=== PATIENT | male | born 1975 | race Caucasian/White ===

== ENCOUNTER 2016-12-23 03:13 | Emergency (ER) | payer OTHER ==
[~2016-12-23] VITALS: Ht 185.4 cm; Wt 86.2 kg
[~2016-12-23 03:13] MED LIST: ALBUTEROL200 PUFFS/ IH; BACTRIM DS 8001 TAB PO; BACTROBAN2% TP; CEPHALEXIN500 MG PO; GABAPENTIN300 M1; GABAPENTIN300 MG PO; IBUPROFEN800 MG PO; KEFLEX 500MG.500 MG PO; LISINOPRIL 20MG20 MG PO; LORTAB 500 MG-11 TAB PO; MEDROL 4MG. DOSE4 MG PO; METHADONE 10MG10 MG PO; NAPROSYN 500MG500 MG PO; NOMEDS; ROBAXIN-750750 MG PO; SEPTRA DS 800 M1 TAB PO; TEMAZEPAM15 MG PO; TESSALON PERLE100 MG PO; VIBRAMYCIN 100100 MG PO; ZITHROMAX Z PA250 MG PO; ZOMIG ZMT PO
--- OUTSIDE RECORDS SUMMARY | 2016-12-23 03:17 | External Medical Summary Rpt ---
Author Author , Organization [employer] Address Unknown Phone Unavailable Care Team Providers Care Turbine Engineer Name Role Phone TEJA PARMAR, Unavailable Unavailable TEJA PARMAR JAMES P, Unavailable Unavailable MAHESH LEDESMA MICHAEL S, Unavailable Unavailable JESUS DESHPANDE LESLIE W, Unavailable Unavailable MAHIN GARCIA [facility] Unavailable Unavailable INC, [facility] Shena Perkins MD, Unavailable Unavailable Shena Deshpande MD, Unavailable Unavailable Trinidad COLEMAN MD, Unavailable Unavailable THALIA COLEMAN MD [id number], Unavailable Unavailable [id number] FARHANA STORY, Unavailable Unavailable FARHANA STORY MARCEL, SIMO, Unavailable Unavailable ALLA Abreu Continuity of Care Document - 03-08-2009 through 2016 Problems Code Diagnosis DOS Provider Status 373.13 373.13 04-24-2013 Vitaliy ABSCESS OF [facility] 682.4 682.4 04-24-2013 Vitaliy CELLULITIS [facility] 305.00 305.00 04-08-2013 Vitaliy ALCOHOL [facility] 305.1 04-08-2013 Vitaliy TOBACCO USE [facility] 924.8 924.8 04-08-2013 Vitaliy MULTIPLE [facility] CONTUSIONS [facility] E825.7 E825.7 MV 04-08-2013 Vitaliy N-TRAFF [facility]-PEDEST [facility] E849.8 E849.8 04-08-2013 Vitaliy ACCIDENT IN [facility] 493.90 493.90 03-30-2013 [facility] 847.0 847.0 03-30-2013 Vitaliy SPRAIN OF [facility] 922.31 922.31 BACK 03-30-2013 Vitaliy CONTUSION [facility] E849.0 E849.0 03-30-2013 Vitaliy ACCIDENT IN [facility] E880.9 E880.9 FALL 03-30-2013 Vitaliy ON [facility] STAIR/STEP [place]EC 83771 DEGEN 07-03-2009 [facility] [place] LUMBAR/LUMB PAIN OSACRAL [facility]ESSION[facility] RAL DISC 68486 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 PROFESSIONA [facility]ERV[facility] REGION 7840 HEADACHE 07-03-2009 [facility] [place] [facility]IN [facility] V5869 LONG-TERM 07-03-2009 [facility] [place] (CURRENT[place] PAIN USE OF PROFESSIONA OTHER LS LLC MEDICATIONS 490 BRONCHITIS 06-18-2009 [facility] SPE[facility]IED CENTER ACUTE OR CHRONIC 92821 ASTHMA, 06-18-2009 [facility] , CENTER UNSPECIFIED STATUS 16908 ASTHMA 06-14-2009 [facility] U[facility]PECIFIED [facility]CARE WITH CENTER EXACERBATIO N 71295 UNSPECIFIED 05-11-2009 [facility] REG[facility] AND THIGH 37800 PAIN IN 05-08-2009 [facility] [place] JOINT PAIN P[facility]VIC PROFESSIONA REGION AND LS LLC THIGH 4660 ACUTE 04-29-2009 [facility] 19371 WHEEZING 04-29-2009 [facility] Allergies, Adverse Reactions, Alerts Type Allergy to substance Adverse Reaction to Substance Substance Reaction Severity NO KNOWN ALLERGIES Unknown Unknown Medications Na ND Rx Da Fi Fi Am Da Di Ph RX Ph St me C No te ll ll ou ys ag ar # ys at rm s nt no ma ic us Or Da si cy ia de te s n re d GE 17 09 0 No NT 47 -0 AK 80 2- Lo 28 20 ng 0. 43 13 er 3 5 % Ac EY ti E ve OI NT ME NT GONZALES 51 09 0 No LF 07 -0 AM 90 2- Lo ET 12 20 ng HO 82 13 er XA 0 ZO Ac LE ti -T ve MP DS TA BL ET KE 00 08 0 No TO 40 -0 RO 93 8- Lo LA 79 20 ng C 50 13 er 30 1 Ac MG ti /M ve L AL 53 01 01 00 30 30 RI 81 RU Ac 74 -1 -2 .0 TE 71 TL ti 60 4- 8- 00 98 ED ve 11 20 20 AI GE 90 10 10 D 1 PH CEDILLO AR RO M LD #3 H 93 8 GA 53 01 01 00 90 30 RI 81 RU Ac BA 74 -1 -2 .0 TE 71 TL ti PE 60 4- 8- 00 96 ED ve NT 10 20 20 AI GE IN 20 10 10 D 1 PH CEDILLO 30 AR RO 0 M LD MG #3 H 93 CA 8 PS UL E TE 67 01 01 00 14 14 RI 81 RU Ac MA 87 -1 -2 .0 TE 71 TL ti ZE 70 4- 8- 00 97 ED ve PA 14 20 20 AI GE M 70 10 10 D 30 1 PH CEDILLO AR RO MG M LD #3 H CA 93 PS 8 UL E AZ 59 10 11 00 6. 5 RI 80 GR Ac IT 76 -2 -0 00 TE 55 AV ti HR 23 3- 5- 0 24 ES ve OM 06 20 20 AI YC 00 09 09 D LE IN 1 PH SL AR IE 25 M W 0 #3 MG 93 8 TA BL ET 59 10 11 00 8. 25 RI 80 GR Ac 31 -2 -0 50 TE 60 AV ti 00 7- 5- 0 63 ES ve 57 20 20 AI 92 09 09 D LE 0 PH SL AR IE M W #3 93 8 ME 00 10 11 00 21 6 RI 80 GR Ac TH 60 -2 -0 .0 TE 60 AV ti YL 34 7- 5- 00 62 ES ve VA 59 20 20 AI ED 31 09 09 D LE NI 5 PH SL SO AR IE LO M W NE #3 4 93 8 MG DO SE PK MU 63 10 11 00 30 15 RI 80 GR Ac CI 82 -2 -0 .0 TE 60 AV ti NE 40 7- 5- 00 64 ES ve X 00 20 20 AI ER 86 09 09 D LE 1 PH SL 60 AR IE 0 M W MG #3 93 TA 8 BL ET 49 10 11 00 75 30 RI 80 GR Ac 50 -2 -0 .0 TE 55 AV ti 20 3- 5- 00 23 ES ve 69 20 20 AI 72 09 09 D LE 4 PH SL AR IE M W #3 93 8 AD 00 10 11 00 60 30 RI 80 GR Ac VA 17 -2 -0 .0 TE 60 AV ti IR 30 7- 5- 00 71 ES ve 69 20 20 AI 25 60 09 09 D LE 0- 0 PH SL 50 AR IE M W DI #3 SK 93 US 8 ME 00 09 10 00 21 6 RI 80 GA Ac TH 60 -1 -0 .0 TE 06 IN ti YL 34 9- 8- 00 58 EY ve VA 59 20 20 AI ED 31 09 09 D SC NI 5 PH CH SO AR AE LO M L NE #3 S 4 93 8 MG DO SE PK 59 09 09 00 8. 25 RI 79 FL Ac 31 -0 -2 50 TE 87 AN ti 00 7- 4- 0 77 AG ve 57 20 20 AI AN 92 09 09 D 0 PH JA AR ME M S #3 P 93 8 AZ 59 09 09 00 6. 5 RI 79 FL Ac IT 76 -0 -2 00 TE 87 AN ti HR 23 7- 4- 0 76 AG ve OM 06 20 20 AI AN YC 00 09 09 D IN 1 PH JA AR ME 25 M S 0 #3 P MG 93 8 TA BL ET Vital Signs 04-24-2013 00:20 Name Value Interpretat Reference Comment ion Range Body 98.3 [degF] Temperature BP 105 mm[Hg] Diastolic BP Systolic 153 mm[Hg] Heart 84 /min Rate/Pulse O2% 98 % Respiratory 16 /min Rate 04-24-2013 00:19 Name Value Interpretat Reference Comment ion Range BP 105 mm[Hg] Diastolic BP Systolic 153 mm[Hg] Heart 84 /min Rate/Pulse O2% 98 % Respiratory 16 /min Rate 04-08-2013 16:59 Name Value Interpretat Reference Comment ion Range BP 94 mm[Hg] Diastolic BP Systolic 140 mm[Hg] Heart 93 /min Rate/Pulse O2% 97 % Respiratory 20 /min Rate 04-08-2013 16:17 Name Value Interpretat Reference Comment ion Range BP 88 mm[Hg] Diastolic BP Systolic 171 mm[Hg] Heart 98 /min Rate/Pulse O2% 99 % Respiratory 20 /min Rate 03-30-2013 21:00 Name Value Interpretat Reference Comment ion Range Body 98.6 [degF] Temperature BP 87 mm[Hg] Diastolic BP Systolic 157 mm[Hg] Heart 71 /min Rate/Pulse O2% 99 % Respiratory 20 /min Rate 03-30-2013 19:52 Name Value Interpretat Reference Comment ion Range BP 109 mm[Hg] Diastolic BP Systolic 158 mm[Hg] Heart 94 /min Rate/Pulse O2% 97 % Respiratory 20 /min Rate Results Labs Lab Lab Date Result Refere Interp Status Commen Order Detail nces retati t Range on COMPREHENSIVE METABOLIC PANEL (04-08-2013 16:22) Glucose 112 74-106 complet 013 mg/dL ed Bld-mCn 16:22 c BUN 08-17-2 9 mg/dL 7-18 complet Bld-mCn 013 ed c 16:22 Creat 1.0 0.8-1.3 complet SerPl-m 013 mg/dL ed Cnc 16:22 ESTIMAT 132 50-200 complet ED 013 ML/MIN ed CREATIN 16:22 INE CLEARAN CE GFR 85 Greater complet (ESTIMA 013 ML/MIN than ed OLAF) 16:22 60 Sodium 146 136-145 complet SerPl-s 013 mmoL/L ed Cnc 16:22 Potassi 3.5 3.5-5.1 complet um 013 mmoL/L ed SerPl-s 16:22 Cnc Chlorid 109 98-107 complet e 013 mmoL/L ed SerPl-s 16:22 Cnc CO2 26 21.0-32 complet SerPl-s 013 mmoL/L .0 ed Cnc 16:22 Calcium 8.6 8.5-10. complet 013 mg/dL 1 ed SerPl-m 16:22 Cnc Prot 7.8 6.4-8.2 complet SerPl-m 013 gm/dL ed Cnc 16:22 Albumin 4.1 3.4-5.0 complet 013 gm/dL ed SerPl-m 16:22 Cnc Globuli 3.7 1.3-3.2 complet n 013 gm/dL ed Ser-mCn 16:22 c Albumin 1.1 UNK 1.1-1.8 complet /Glob 013 ed SerPl-m 16:22 Rto Bilirub 1.2 0.2-1.0 complet 013 mg/dL ed SerPl-m 16:22 Cnc AST 16 U/L 15-37 complet SerPl-c 013 ed Cnc 16:22 ALT 41 U/L 30-65 complet SerPl-c 013 ed Cnc 16:22 ALP 99 U/L 50-136 complet SerPl-c 013 ed Cnc 16:22 Ethanol Bld-mCnc (04-08-2013 16:22) Ethanol 08-17-2 175 0-99 complet 013 mg/dL ed Bld-mCn 16:22 c CBC with AUTO DIFF (04-08-2013 16:22) WBC # 08-17-2 7.2 4.8-10. complet Bld 013 K/MM3 8 ed Auto 16:22 RBC # 08-17-2 4.64 4.6-6.2 complet Bld 013 M/mm3 ed Auto 16:22 Hgb 08-17-2 13.7 14.1-18 complet Bld-mCn 013 g/dL .0 ed c 16:22 Hct Fr 17-2 40.3 % 42.0-52 complet Bld 013 .0 ed 16:22 MCV RBC 08-17-2 86.7 fl 82.2-97 complet 013 .8 ed 16:22 MCH RBC -17-2 29.5 pg 27-31.2 complet Qn 013 ed Auto 16:22 MEAN 08-17-2 34.0 31.8-35 complet CORPUSC 013 g/dl .4 ed ULAR 16:22 HGB CONC RDW RBC -17-2 13.6 % 11.5-17 complet Auto 013 .5 ed 16:22 Platele 08-17-2 248 142-424 complet t Bld 013 K/mm3 ed Ql 16:22 Manual MEAN 17-2 7.5 fl 7.4-10. complet PLATELE 013 4 ed T 16:22 VOLUME Granulo -17-2 67.3 % 37.0-80 complet cytes 013 .0 ed Fr Bld 16:22 Auto LYMPH % 08-17-2 23.1 % 10-50 complet 013 ed 16:22 Monocyt 08-17-2 5.5 % 1.7-9.3 complet es Fr 013 ed Bld 16:22 Auto Eosinop 08-17-2 3.7 % 0.1-12. complet hil Fr 013 0 ed Bld 16:22 Auto Basophi 08-17-2 0.4 % 0.1-2.0 complet ls Fr 013 ed Bld 16:22 Auto Granulo 08-17-2 4.9 1.3-8.0 complet cytes # 013 K/mm3 ed Bld 16:22 Auto Lymphoc 08-17-2 1.7 0.7-4.5 complet ytes Fr 013 K/mm3 ed Bld 16:22 Auto Monocyt 08-17-2 0.4 0.1-1.0 complet es # 013 K/mm3 ed Bld 16:22 Auto Eosinop 08-17-2 0.3 0.0-0.4 complet hil # 013 K/mm3 ed Bld 16:22 Auto Basophi 08-17-2 0.0 0-0.2 complet ls # 013 K/MM3 ed Bld 16:22 Auto URINALYSIS/COMPLETE (04-08-2013 15:40) URINE 08-17-2 YELLOW YELLOW complet COLOR 013 ed 15:40 URINE 08-17-2 CLEAR CLEAR complet APPEARA 013 ed NCE 15:40 URINE 08-17-2 NEGATIV NEG complet GLUCOSE 013 E ed - 15:40 DIPSTIC K URINE 08-17-2 NEGATIV NEG complet BILIRUB 013 E ed IN - 15:40 DIPSTIC K URINE 08-17-2 NEGATIV NEG complet KETONE 013 E mg/dL ed 15:40 URINE 08-17-2 Less 1.005-1 complet SPECIFI 013 than or .030 ed C 15:40 equal GRAVITY to 1.005 URINE 08-17-2 NEGATIV NEG complet BLOOD 013 E ed 15:40 URINE 08-17-2 5.5 UNK 5.0-8.5 complet PH 013 ed 15:40 URINE 08-17-2 NEGATIV NEG complet PROTEIN 013 E mg/dL ed - 15:40 DIPSTIC K URINE 08-17-2 0.2 NEG complet UROBILI 013 E.U./dL ed NOGEN - 15:40 DIPSTIC K URINE 08-17-2 NEGATIV NEG complet NITRATE 013 E ed - 15:40 DIPSTIC K URINE 08-17-2 NEGATIV NEG complet LEUK 013 E ed ESTERAS 15:40 E URINE 08-17-2 OCC O complet WBC 013 wbc/hpf ed 15:40 URINE 08-17-2 OCC OCC complet SQUAMOU 013 #/hpf ed S CELLS 15:40 URINE 08-17-2 TRACE O complet BACTERI 013 ed A 15:40 Procedures Procedure DOS Code Location Performer Comment PRESSURIZ 34159 [facility], ED/NONPRE 9 [facility] W SSURIZED E CENTER INHALATIO N TREATMENT NONINVASI 15689 [facility], [place] 9 [facility] W EAR/PULSE E CENTER OXIMETRY SINGLE DETER RADEX HIP 34471 SLICK PARMAR, 9 MEDICAL TEJA VIGILA IMAGING L ASSOCIATE COMPLETE S MINIMUM 2 VIEWS RADIOLOGI 85673 [facility] B[facility]KS C EXAM 9 [facility] CHEST 2 INC INC VIEWS FRONTAL&L ATERAL Encounters Encounter Start End Date Code Location Performer Type Date Emergency BAIRON Deshpande MD (ER) 3 23:40 3 00:21 [facility] Emergency BAIRON COLEMAN (ER) 3 15:42 3 17:10 [facility] Emergency BAIRON Perkins MD (ER) 3 18:35 3 21:[address] [facility] OFFICE 01844 KAJAL CURRY 9 9 [place] PAIN [place] H T VISIT PROFESSIO 15 [facility] MINUTES OFFICE 08134 [facility], OUTPATIEN 9 9 [facility] ALL[facility] T VISIT E CENTER 15 MINUTES OFFICE 77691 [facility], OUTPATIEN 9 9 [facility] MA[facility]IN W T NEW 30 E CENTER MINUTES EMERGENCY 42069 [facility] 9 9 [facility] DEPARTMEN INC T VISIT LOW/MODER SEVERITY HOSPITAL [facility] - 9 9 [facility] OUTPATIEN INC T EMERGENCY 05176 TEZ DESHPANDE, 9 9 EMERGENCY JESUS S DEPARTMEN SERVICES T VISIT MODERATE ASSOCIATE SEVERITY S OFFICE 18083 KAJAL CURRY 9 9 [place] T VISIT PROFESSIO [facility] MINUTES HOSPITAL [facility] - 9 9 [facility] OUTPATIEN INC T EMERGENCY 92095 TEZ LEDESMA, 9 9 EMERGENCY MAHESH P DEPARTMEN SERVICES T VISIT HIGH/URGE ASSOCIATE NT S SEVERITY EMERGENCY 10443Daxa BURKS 9 9 [facility] DEPARTMEN INC T VISIT LOW/MODER SEVERITY HOSPITAL [facility] - 9 9 [facility] OUTPATIEN INC T OFFICE 23358 KAJAL CURRY 9 9 [place] PAIN [place] Angelo T VISIT PROFESSIO 15 [facility] MINUTES
--- OUTSIDE RECORDS SUMMARY | 2016-12-23 03:17 | External Medical Summary Rpt ---
Author Author , Organization [employer] Address Unknown Phone Unavailable Care Team Providers Care Locks Tender Name Role Phone TEJA PARMAR, Unavailable Unavailable [...] Status 373.13 373.13 04-24-2013 Vitaliy ABSCESS OF [facility] 682.4 682.4 04-24-2013 Vitaliy CELLULITIS [facility] 305.00 305.00 04-08-2013 Vitaliy ALCOHOL [facility] 305.1 305.1 04-08-2013 Vitaliy TOBACCO USE [facility] 924.8 924.8 04-08-2013 Vitaliy MULTIPLE [facility] CONTUSIONS [facility] E825.7 E825.7 MV 04-08-2013 Vitaliy N-TRAFF [facility]-PEDEST [facility] E849.8 E849.8 04-08-2013 Vitaliy ACCIDENT IN [facility] 493.90 493.90 03-30-2013 [facility] 847.0 847.0 03-30-2013 Vitaliy SPRAIN OF [facility] 922.31 922.31 BACK 03-30-2013 Vitaliy CONTUSION [facility] E849.0 E849.0 03-30-2013 Vitaliy ACCIDENT IN [facility] E880.9 E880.9 FALL 03-30-2013 Vitaliy ON [facility] STAIR/STEP Hospital NEC 14673 DEGEN 07-03-2009 [facility] [place] LUMBAR/LUMB [place]IN OSACRAL PROFESSIONA [facility] RAL DISC 60017 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 PROFESSIONA [facility] REGION 7840 HEADACHE 07-03-2009 [facility] [place] [facility] [facility] V5869 LONG-TERM 07-03-2009 [facility] [place] (CURRENT[place] PAIN USE OF PROFESSIONA OTHER [facility] MEDICATIONS 490 BRONCHITIS 06-18-2009 [facility] NOT [facility] SPECIFIED CENTER ACUTE OR CHRONIC 53243 ASTHMA, 06-18-2009 [facility] U[facility]PEC[facility]ARE , CENTER UNSPECIFIED STATUS 54085 ASTHMA 06-14-2009 [facility] UNSPECIFIED [facility]ARE WITH CENTER EXACERBATIO N 46839 UNSPECIFIED 05-11-2009 [facility] REG[facility] AND THIGH 98654 PAIN IN 05-08-2009 [place] [place] JOINT PAIN [facility] THIGH 4660 ACUTE 04-29-2009 [facility] 55675 WHEEZING 04-29-2009 [facility] Allergies, Adverse Reactions, Alerts [...] 34 7- 5- 00 62 ES ve MO 59 20 20 AI ED 31 09 [...] 34 9- 8- 00 58 EY ve MO 59 20 20 AI ED 31 09 09 D OK NI 5 PH CH SO AR AE [...] Procedure DOS Code Location Performer Comment PRESSURIZ 22335 [facility], ED/NONPRE 9 [facility] W SSURIZED E CENTER INHALATIO N TREATMENT NONINVASI 99349 [facility], [place] 9 [facility] W EAR/PULSE E CENTER OXIMETRY SINGLE DETER RADEX HIP 96455 SLICK PARMAR, 9 MEDICAL TEJA VIGILA IMAGING L ASSOCIATE COMPLETE S MINIMUM 2 VIEWS RADIOLOGI 04914 VIATLIY BURKS C EXAM 9 [facility] CHEST 2 INC INC VIEWS FRONTAL&L ATERAL Encounters Encounter Start End Date Code Location Performer Type Date Emergency BAIRON Deshpande MD (ER) 3 23:40 3 00:21 [facility] Emergency BAIRON COLEMAN (ER) 3 15:42 3 17:10 [facility] Emergency BAIRON Perkins MD (ER) 3 18:35 3 21:02 [facility] OFFICE 38353 KAJAL CURRY 9 9 [place] T VISIT PROFESSIO [facility] MINUTES OFFICE 63703 [facility], OUTPATIEN 9 9 [facility] ALLA T VISIT E CENTER 15 MINUTES OFFICE 18754 [facility], OUTPATIEN 9 9 [facility] MAHIN W T NEW 30 E CENTER MINUTES EMERGENCY 76499 [facility] 9 9 [facility] DEPARTMEN INC T VISIT LOW/MODER SEVERITY HOSPITAL [facility] - 9 9 [facility] OUTPATIEN INC T EMERGENCY 53464 TEZ DESHPANDE, 9 9 EMERGENCY JESUS S DEPARTMEN SERVICES T VISIT MODERATE ASSOCIATE SEVERITY S OFFICE 36585 KAJAL CURRY 9 9 [place] T VISIT PROFESSIO [facility] MINUTES HOSPITAL VITALIY - 9 9 [facility] OUTPATIEN INC T EMERGENCY 10876 TEZ LEDESMA, 9 9 EMERGENCY MAHESH P DEPARTMEN SERVICES T VISIT HIGH/URGE ASSOCIATE NT S SEVERITY EMERGENCY 45001Daxa BURKS 9 9 [facility] DEPARTMEN INC T VISIT LOW/MODER SEVERITY HOSPITAL [facility] - 9 9 [facility] OUTPATIEN INC T OFFICE 30163 KAJAL CURRY 9 9 [place] Angelo T VISIT PROFESSIO 15 [facility] MINUTES
--- OUTSIDE RECORDS SUMMARY | 2016-12-23 03:18 | External Medical Summary Rpt ---
Author Author , Organization [employer] Address Unknown Phone Unavailable Care Team Providers Care Platform Loader Name Role Phone TEJA PARMAR, Unavailable Unavailable GHULAMTEJA PANDYA MAHESH LEDESMA, Unavailable Unavailable MAHESH LEDESMA MICHAEL S, Unavailable Unavailable JESUS DESHPANDE LESLIE W, Unavailable Unavailable MAHIN GARCIA [facility] Un[facility] Un[facility] INC, [id number], Unavailable Unavailable [id number] FARHANA STORY, Unavailable Unavailable FARHANA STORY MARCEL, SIMO, Unavailable Unavailable ALLA Arbeu Continuity of Care Document - 03-08-2009 through 2016 Problems Code Diagnosis DOS Provider Status 38201 DEGEN 07-03-2009 [place] [place] LUMBAR/LUMB PAIN OSACRAL [facility]ESSION[facility] RAL DISC 10573 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 PROFESSIONA [facility] REGION 7840 HEADACHE 07-03-2009 [facility] [place] [facility] [facility] V5869 LONG-TERM 07-03-2009 [facility] [place] (CURRENT[place] PAIN USE OF PROFESSIONA OTHER [facility] MEDICATIONS 490 BRONCHITIS 06-18-2009 [facility] SPE[facility]IFIED CENTER ACUTE OR CHRONIC 74935 ASTHMA, 06-18-2009 [facility] , CENTER UNSPECIFIED STATUS 26308 ASTHMA 06-14-2009 [facility] U[facility]PECIFIED [facility] WITH CENTER EXACERBATIO N 51672 UNSPECIFIED 05-11-2009 [facility] REGION AND THIGH 80360 PAIN IN 05-08-2009 [place] [place] JOINT PAIN PEL[facility]IC PROFESSIONA REGION AND [facility] THIGH 4660 ACUTE 04-29-2009 [facility]IS [facility] 39424 WHEEZING 04-29-2009 [facility] Medications Na ND Rx Da Fi Fi Am Da Di Ph RX Ph St me C No te ll ll ou ys ag ar # ys at rm s nt no ma ic us Or Da si cy ia de te s n re d 53 01 01 00 30 30 RI [...] 34 7- 5- 00 62 ES ve WV 59 20 20 AI ED 31 09 [...] MG #3 93 TA 8 BL ET AD 00 10 11 00 60 30 RI 80 GR Ac VA 17 -2 -0 .0 TE 60 AV ti IR 30 7- 5- 00 71 ES ve 69 20 20 AI 25 60 09 09 D LE 0- 0 PH SL 50 AR IE M W DI #3 SK 93 US 8 49 10 11 00 75 30 RI 80 GR Ac 50 -2 -0 .0 TE 55 AV ti 20 3- 5- 00 23 ES ve 69 20 20 AI 72 09 09 D LE 4 PH SL AR IE M W #3 93 8 ME 00 09 10 00 21 6 RI 80 GA Ac TH 60 -1 -0 .0 TE 06 IN ti YL 34 9- 8- 00 58 EY ve WV 59 20 20 AI ED 31 09 09 D IN NI 5 PH CH SO AR AE [...] P MG 93 8 TA BL ET Procedures Procedure DOS Code Location Performer Comment PRESSURIZ 35822 [facility], ED/NONPRE 9 [facility] [place] W SSURIZED E CENTER INHALATIO N TREATMENT NONINVASI 29388 [facility] GARCIA, VE 9 [facility]IN W EAR/PULSE E CENTER OXIMETRY SINGLE DETER RADEX HIP 65487 [place] GHULAM 9 MEDICAL TEJA UNILATERA IMAGING L ASSOCIATE COMPLETE S MINIMUM 2 VIEWS RADIOLOGI 82350 [place] Belkis PARMAR EXAM 9 MEDICAL TEJA CHEST 2 IMAGING VIEWS ASSOCIATE FRONTAL&L S ATERAL Encounters Encounter Start End Date Code Location Performer Type Date OFFICE 49749 [facility] [place] 9 [place] T VISIT PROFESSIO [facility] MINUTES OFFICE 66796 [facility] OUTPATIEN 9 9 [facility] ALLA T VISIT E CENTER 15 MINUTES OFFICE 39550 [facility], [facility] 9 [facility] MAHIN W T NEW 30 E CENTER MINUTES HOSPITAL VITALIY - 9 9 [facility] OUTPATIEN INC T EMERGENCY 41528 TEZ DESHPANDE, 9 9 EMERGENCY [facility] SERVICES T VISIT MODERATE ASSOCIATE SEVERITY S EMERGENCY 15731 [facility] 9 9 [facility] DEPARTMEN INC T VISIT LOW/MODER SEVERITY HOSPITAL VITAL[facility]Y - 9 9 [facility] OUTPATIEN INC T OFFICE 35577 KAJAL CURRY 9 9 [place] T VISIT PROFESSIO 15 [facility] MINUTES EMERGENCY 61494 TEZ LEDESMA, 9 9 EMERGENCY [facility] SERVICES T VISIT HIGH/URGE ASSOCIATE NT S SEVERITY HOSPITAL VITALIY - 9 9 [facility] OUTPATIEN INC T EMERGENCY 57442 [facility] 9 9 [facility] DEPARTMEN INC T VISIT LOW/MODER SEVERITY OFFICE 88507 KAJAL CURRY 9 9 [place] T VISIT PROFESSIO 15 [facility] MINUTES
--- OUTSIDE RECORDS SUMMARY | 2016-12-23 03:18 | External Medical Summary Rpt ---
Demographics Preferred Language Botswanan Marital Status Unknown Mu-Ism Affiliation Unknown Race Unknown Ethnic Group Unknown Author Author , Organization [employer] Address Unknown Phone Unavailable Purpose Continuity of Care Document - through 2016 Immunization No patient found.
--- OUTSIDE RECORDS SUMMARY | 2016-12-23 03:18 | External Medical Summary Rpt ---
Author Author , Organization [employer] Address Unknown Phone Unavailable Care Team Providers Care Meat Counter Worker Name Role Phone TEJA PARMAR, Unavailable Unavailable [...] 2016 Problems Code Diagnosis DOS Provider Status 38404 DEGEN 07-03-2009 [place] [place] LUM[place]/LUMB PA[place] OSACRAL PROFESSIONA [facility] RAL DISC 35405 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 PROFESSIONA [facility] REGION 7840 HEADACHE 07-03-2009 [facility] [place] [facility] [facility] V5869 LONG-TERM 07-03-2009 [place] [place] (CURRENT[place] PAIN USE OF PROFESSIONA OTHER [facility] MEDICATIONS 490 BRONCHITIS 06-18-2009 [facility]IED CENTER ACUTE OR CHRONIC 68208 ASTHMA, 06-18-2009 [facility] , CENTER UNSPECIFIED STATUS 41996 ASTHMA 06-14-2009 [facility] WITH CENTER EXACERBATIO N 92893 UNSPECIFIED 05-11-2009 [facility] REGION AND THIGH 62763 PAIN IN 05-08-2009 [place] JOINT PAIN [facility]IC PROFESSIONA REG[facility] AND [facility] THIGH 4660 ACUTE 04-29-2009 [facility]IS [facility] 29013 WHEEZING 04-29-2009 [facility] Medications Na ND Rx [...] GE 90 10 10 D 1 PH CDEILLO AR RO M LD #3 H 93 [...] 34 7- 5- 00 62 ES ve NJ 59 20 20 AI ED 31 09 [...] 34 9- 8- 00 58 EY ve NJ 59 20 20 AI ED 31 09 09 D MD NI 5 PH CH SO AR AE [...] Procedure DOS Code Location Performer Comment PRESSURIZ 35021 [facility], ED/NONPRE 9 [facility] [place] W SSURIZED E CENTER INHALATIO N TREATMENT NONINVASI 25159 [facility]OHA[facility] GARCIA, VE 9 [facility]HIN W EAR/PULSE E CENTER OXIMETRY SINGLE DETER RADEX HIP 95251 [place] 9 MEDICAL TEJA UNILATERA IMAGING L ASSOCIATE COMPLETE S MINIMUM 2 VIEWS RADIOLOGI 70695 [place] PARMAR EXAM 9 MEDICAL TEJA CHEST 2 IMAGING VIEWS ASSOCIATE FRONTAL&L S ATERAL Encounters Encounter Start End Date Code Location Performer Type Date OFFICE 53433 [facility] [place] H T VISIT PROFESSIO [facility] MINUTES OFFICE 31378 [facility] ROMERO OUTPATIEN 9 9 [facility] ALLA T VISIT E CENTER 15 MINUTES OFFICE [id number] [facility], [facility]IN W T NEW 30 E CENTER MINUTES HOSPITAL VITALIY - 9 9 [facility] OUT[facility] INC T EMERGENCY 36164 TEZ [place], [address] [facility] SERVICES T VISIT MODERATE ASSOCIATE SEVERITY S EMERGENCY 28478 VITALIY 9 9 [facility] DEPARTMEN [facility] T VISIT LOW/MODER SEVERITY HOSPITAL VITALIY - 9 9 [facility] T OFFICE 11012 KAJAL CURRY 9 9 [place] PAIN [place] H T VISIT PROFESSIO 15 [facility] MINUTES EMERGENCY 32338 TEZ LEDESMA, 9 9 EMERGENCY [facility] SERVICES T VISIT HIGH/URGE ASSOCIATE NT S SEVERITY HOSPITAL VITALIY - 9 9 [facility] OUTPATIEN INC T EMERGENCY 24128 VITALIY 9 9 [facility] DEPART[facility] INC T VISIT LOW/MODER SEVERITY OFFICE 01689 KAJAL CURRY 9 9 [place] PAIN [place] H T VISIT PROFESSIO 15 [facility] [facility] MINUTES
--- OUTSIDE RECORDS SUMMARY | 2016-12-23 03:18 | External Medical Summary Rpt ---
Author Author [employer], [employer] Organization [employer] Address Unknown Phone Unavailable
--- OUTSIDE RECORDS SUMMARY | 2016-12-23 03:18 | External Medical Summary Rpt ---
Demographics Preferred Language [place]an Marital Status Unknown Jainism Affiliation Unknown Race Unknown Ethnic Group Unknown Author Author , Organization [employer] Address Unknown Phone Unavailable Purpose Continuity of Care Document - through 2016 Immunization No patient found.
[2016-12-23] MEDS ORDERED: METOPROLOL SUCC25 M2 PO (03:20)
[2016-12-23] MEDS ORDERED: GABAPENTIN300 M1 PO (03:21)
[2016-12-23] MEDS ORDERED: DIAZEPAM5 M1 PO (03:21)
[2016-12-23] MEDS ORDERED: DULOXETINE HYDR30 MG PO (03:22)
[2016-12-23] MEDS ORDERED: TRAMADOL 50MG T50 MG PO (03:22)
[2016-12-23] MEDS ORDERED: LOSARTAN POTASS50 MG PO (03:22)
--- OUTSIDE RECORDS SUMMARY | 2016-12-23 03:24 | External Medical Summary Rpt ---
Author Author , Organization [employer] Address Unknown Phone Unavailable Care Team Providers Care Etl Analyst Developer Name Role Phone TEJA PARMAR, Unavailable Unavailable [...] Status 373.13 373.13 04-24-2013 Vitaliy ABSCESS OF [facility] 682.4 682.4 04-24-2013 Vitaliy CELLULITIS [facility] 305.00 305.00 04-08-2013 Vitaliy ALCOHOL [facility] 305.1 305.1 04-08-2013 Vitaliy TOBACCO USE [facility] 924.8 924.8 04-08-2013 Vitaliy MULTIPLE [facility] CONTUSIONS [facility] E825.7 E825.7 MV 04-08-2013 Vitaliy N-TRAFF [facility] E849.8 E849.8 04-08-2013 Vitaliy ACCIDENT IN [facility] 493.90 493.90 03-30-2013 [facility] 847.0 847.0 03-30-2013 Vitaliy SPRAIN OF [facility] 922.31 922.31 BACK 03-30-2013 Vitaliy CONTUSION [facility] E849.0 E849.0 03-30-2013 Vitaliy ACCIDENT IN [facility] E880.9 E880.9 FALL 03-30-2013 Vitaliy ON [facility] STAIR/ST[place] 94920 DEGEN 07-03-2009 [facility] [place] LUMBAR/LUMB PAIN OSACRAL PROFESSIONA [facility] RAL DISC 69892 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 PROFESSIONA CERVICAL LS LLC REGION 7840 HEADACHE 07-03-2009 [place] PAIN PROFESSIONA [facility] V5869 LONG-TERM 07-03-2009 [place] [place] (CURRENT[place] PAIN USE OF PROFESSIONA OTHER LS LLC MEDICATIONS 490 BRONCHITIS 06-18-2009 [facility]IED CENTER ACUTE OR CHRONIC 07173 ASTHMA, 06-18-2009 [facility] , CENTER UNSPECIFIED STATUS 47055 ASTHMA 06-14-2009 [facility] UNSPECIFIED [facility]CARE WITH CENTER EXACERBATIO N 75727 UNSPECIFIED 05-11-2009 [facility] REG[facility] AND THIGH 23542 PAIN IN 05-08-2009 [place] JOINT PAIN PELVIC PROFESSIONA REGION AND LS [facility] THIGH 4660 ACUTE 04-29-2009 [facility] 83176 WHEEZING 04-29-2009 [facility] Allergies, Adverse Reactions, Alerts [...] 34 7- 5- 00 62 ES ve SC 59 20 20 AI ED 31 09 [...] 34 9- 8- 00 58 EY ve SC 59 20 20 AI ED 31 09 09 D ME NI 5 PH CH SO AR AE [...] 013 mg/dL ed Bld-mCn 16:22 c BUN 9 mg/dL 7-18 complet Bld-mCn 013 ed [...] Bld 013 .0 ed 16:22 MCV RBC 0817-2 86.7 fl 82.2-97 complet 013 .8 ed 16:22 MCH RBC 17-2 29.5 pg 27-31.2 complet Qn 013 ed Auto 16:22 MEAN -17-2 34.0 31.8-35 complet CORPUSC 013 g/dl .4 ed ULAR 16:22 HGB CONC RDW RBC -17-2 13.6 % 11.5-17 complet Auto 013 .5 ed 16:22 Platele -17-2 248 142-424 complet t Bld 013 K/mm3 ed Ql 16:22 Manual MEAN 17-2 7.5 fl 7.4-10. complet PLATELE 013 4 ed T 16:22 VOLUME Granulo -17-2 67.3 % 37.0-80 complet cytes 013 .0 ed Fr Bld 16:22 Auto LYMPH % 08-17-2 23.1 % 10-50 complet 013 ed 16:22 Monocyt -17-2 5.5 % 1.7-9.3 complet es Fr 013 [...] Procedure DOS Code Location Performer Comment PRESSURIZ 62352 [facility], ED/NONPRE 9 [facility] W SSURIZED E CENTER INHALATIO N TREATMENT NONINVASI 04096 [facility] [place], [place] 9 [facility] W EAR/PULSE E CENTER OXIMETRY SINGLE DETER RADEX HIP 10099 SLICK GHULAM, 9 MEDICAL TEJA UNILATERA IMAGING L ASSOCIATE COMPLETE S MINIMUM 2 VIEWS RADIOLOGI 94637 SLICK GHULAM, C EXAM 9 MEDICAL TEJA CHEST 2 IMAGING VIEWS ASSOCIATE FRONTAL&L S ATERAL Encounters Encounter Start End Date Code Location Performer Type Date Emergency BAIRON Deshpande MD (ER) 3 23:40 3 00:21 [facility] Emergency BAIRON COLEMAN (ER) 3 15:42 3 17:10 [facility] Emergency BAIRON Perkins MD (ER) 3 18:35 3 21:02 [facility] OFFICE 57045 KAJAL CURRY 9 9 [place] T VISIT PROFESSIO [facility] MINUTES OFFICE 94582 [facility], OUTPATIEN 9 9 [facility] T VISIT E CENTER 15 MINUTES OFFICE 77867 [facility]RA[facility], OUTPATIEN 9 9 [facility] W T NEW 30 E CENTER MINUTES EMERGENCY 99664 TEZ DESHPANDE, 9 9 EMERGENCY [facility] DEPARTMEN SERVICES T VISIT MODERATE ASSOCIATE SEVERITY S EMERGENCY 17881 [facility] 9 9 [facility]PARTMEN INC T VISIT LOW/MODER SEVERITY HOSPITAL [facility] - 9 9 [facility] OUTPATIEN INC T OFFICE 26049 KAJAL CURRY 9 9 [place] T VISIT PROFESS[facility] MINUTES HOSPITAL VITALIY - 9 9 [facility] OUTPATIEN INC T EMERGENCY 49929 V[facility]Y 9 9 [facility] DEPARTMEN INC T VISIT LOW/MODER SEVERITY HOSPITAL VITALIY - 9 9 [facility] OUTPATIEN INC T EMERGENCY 98525 TEZ LEDESMA, 9 9 EMERGENCY MAHESH Kirk [facility] SERVICES T VISIT HIGH/URGE ASSOCIATE NT S SEVERITY OFFICE 09857 KAJAL CURRY 9 9 [place] Angelo T VISIT PROFESSIO 15 [facility] MINUTES
--- OUTSIDE RECORDS SUMMARY | 2016-12-23 03:24 | External Medical Summary Rpt ---
Author Author , Organization [employer] Address Unknown Phone Unavailable Care Team Providers Care Non Destructive Evaluation Manager Name Role Phone TEJA PARMAR, Unavailable Unavailable [...] Status 373.13 373.13 04-24-[address] [facility] 682.4 682.4 04-24-2013 Vitaliy CELLULITIS [facility] 305.00 305.00 04-08-2013 Vitaliy ALCOHOL [facility] 305.1 305.1 04-08-2013 Vitaliy TOBACCO USE [facility] 924.8 924.8 04-08-2013 Vitaliy MULTIPLE [facility] CONTUSIONS [facility] E825.7 E825.7 MV 04-08-2013 Vitaliy N-TRAFF [facility] E849.8 E849.8 04-08-2013 Vitaliy ACCIDENT IN [facility] 493.90 493.90 03-30-2013 [facility] 847.0 847.0 03-30-2013 Vitaliy SPRAIN OF [facility] 922.31 922.31 BACK 03-30-2013 Vitaliy CONTUSION [facility] E849.0 E849.0 03-30-2013 Vitaliy ACCIDENT IN [facility] E880.9 E880.9 FALL 03-30-2013 Vitaliy ON [facility] STAIR/STEP [place] NEC 99347 DEGEN 07-03-2009 [place] LUMBAR/LUMB [place]IN OSACRAL PROFESSIONA INTERVER[facility]B [facility] RAL DISC 20198 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 PROFESSIONA C[facility]ICAL [facility] REGION 7840 HEADACHE 07-03-2009 [place] [place] [facility] [facility] V5869 LONG-TERM 07-03-2009 [facility] [place] (CURRENT[place] PAIN USE OF PROFESSIONA OTHER [facility] MEDICATIONS 490 BRONCHITIS 06-18-2009 [facility] SPE[facility]IFIED CENTER ACUTE OR CHRONIC 26460 ASTHMA, 06-18-2009 [facility] , CENTER UNSPECIFIED STATUS 78639 ASTHMA 06-14-2009 [facility] UNSPEC[facility] WITH CENTER EXACERBATIO N 09273 UNSPECIFIED 05-11-2009 [facility] REG[facility] AND THIGH 23194 PAIN IN 05-08-2009 [place] JOINT PAIN [facility] PROF[facility]A REG[facility] AND [facility] THIGH 4660 ACUTE 04-29-2009 [facility]ONCHITIS [facility] 81136 WHEEZING 04-29-2009 [facility] Allergies, Adverse Reactions, Alerts [...] 34 7- 5- 00 62 ES ve AL 59 20 20 AI ED 31 09 [...] 34 9- 8- 00 58 EY ve AL 59 20 20 AI ED 31 09 [...] Procedure DOS Code Location Performer Comment PRESSURIZ 73151 [facility], ED/NONPRE 9 [facility] W SSURIZED E CENTER INHALATIO N TREATMENT NONINVASI 01338 [facility], VE 9 [facility] W EAR/PULSE E CENTER OXIMETRY SINGLE DETER RADEX HIP 47731 SLICK GHULAM, 9 MEDICAL TEJA UNILATERA IMAGING L ASSOCIATE COMPLETE S MINIMUM 2 VIEWS RADIOLOGI 15421 SLICK GHULAM, C EXAM 9 MEDICAL TEJA CHEST 2 IMAGING VIEWS ASSOCIATE FRONTAL&L S ATERAL Encounters Encounter Start End Date Code Location Performer Type Date Emergency BAIRON Deshpande MD (ER) 3 23:40 3 00:21 [facility] Emergency BAIRON COLEMAN (ER) 3 15:42 3 17:10 [facility] Emergency BAIRON Perkins MD (ER) 3 18:35 3 21:02 [facility] OFFICE 88816 KAJAL CURRY 9 9 [place] T VISIT PROFESSIO [facility] MINUTES OFFICE 43371 [facility] ROMERO, OUTPATIEN 9 9 [facility] T VISIT E CENTER 15 MINUTES OFFICE 73011 [facility]RA[facility], OUTPATIEN 9 9 [facility] W T NEW 30 E CENTER MINUTES EMERGENCY 99928 TEZ DESHPANDE, 9 9 EMERGENCY [facility] DEPARTMEN SERVICES T VISIT MODERATE ASSOCIATE SEVERITY S EMERGENCY 11402 VITALIY 9 9 [facility] DEPARTMEN INC T VISIT LOW/MODER SEVERITY HOSPITAL VITALIY - 9 9 [facility] OUTPATIEN INC T OFFICE 49889 KAJAL CURRY 9 9 [place] T VISIT PROFESSIO [facility] MINUTES HOSPITAL VITALIY - 9 9 [facility] OUTPATIEN INC T EMERGENCY 61887 VITALIY 9 9 [facility] DEPARTMEN INC T VISIT LOW/MODER SEVERITY HOSPITAL VITALIY - 9 9 [facility] OUTPATIEN INC T EMERGENCY 48963 TEZ LEDESMA, 9 9 EMERGENCY MAHESH Kirk [facility] SERVICES T VISIT HIGH/URGE ASSOCIATE NT S SEVERITY OFFICE 55067 KAJAL CURRY 9 9 [place] Angelo T VISIT PROFESSIO 15 [facility] MINUTES
--- OUTSIDE RECORDS SUMMARY | 2016-12-23 03:25 | External Medical Summary Rpt ---
Demographics Preferred Language Moroccan Marital Status Unknown Samaritan Affiliation Unknown Race Unknown Ethnic Group Unknown Author Author , Organization [employer] Address Unknown Phone Unavailable Purpose Continuity of Care Document - through 2016 Immunization No patient found.
--- OUTSIDE RECORDS SUMMARY | 2016-12-23 03:25 | External Medical Summary Rpt ---
Author Author , Organization [employer] Address Unknown Phone Unavailable Care Team Providers Care Director Online Marketing Name Role Phone TEJA PARMAR, Unavailable Unavailable [...] 2016 Problems Code Diagnosis DOS Provider Status 53741 DEGEN 07-03-2009 [facility] [place] LUMBAR/LUMB [place]IN OSACRAL PROFESSIONA [facility] RAL DISC 84833 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 PROFESSIONA [facility]ICAL [facility] REGION 7840 HEADACHE 07-03-2009 [facility] [place] [facility] [facility] V5869 LONG-TERM 07-03-2009 [facility] [place] ([place] PAIN USE OF PROFESSIONA OTHER [facility] MEDICATIONS 490 BRONCHITIS 06-18-2009 [facility] NOT [facility] SPE[facility]IFIED CENTER ACUTE OR CHRONIC 92509 ASTHMA, 06-18-2009 [facility] , CENTER UNSPECIFIED STATUS 46678 ASTHMA 06-14-2009 [facility] U[facility]PEC[facility]IED [facility] WITH CENTER EXACERBATIO N 27635 UNSPECIFIED 05-11-2009 [place] [facility] REG[facility] AND THIGH 67766 PAIN IN 05-08-2009 [place] [place] JOINT PAIN [facility] PROF[facility]A [facility] THIGH 4660 ACUTE 04-29-2009 [facility]IS [facility] 75890 WHEEZING 04-29-2009 [facility] Medications Na ND Rx [...] 34 7- 5- 00 62 ES ve NH 59 20 20 AI ED 31 09 [...] 34 9- 8- 00 58 EY ve NH 59 20 20 AI ED 31 09 09 D RI NI 5 PH CH SO AR AE [...] Procedure DOS Code Location Performer Comment PRESSURIZ 18130 [facility], ED/NONPRE 9 [facility] [place] W SSURIZED E CENTER INHALATIO N TREATMENT NONINVASI 64340 ZOHA[facility] GARCIA, VE 9 [facility] W EAR/PULSE E CENTER OXIMETRY SINGLE DETER RADEX HIP 82062 [place] Tj PARMAR MEDICAL TEJA UNILATERA IMAGING L ASSOCIATE COMPLETE S MINIMUM 2 VIEWS RADIOLOGI 91465 [place] Belkis PARMAR EXAM 9 MEDICAL TEJA CHEST 2 IMAGING VIEWS ASSOCIATE FRONTAL&L S ATERAL Encounters Encounter Start End Date Code Location Performer Type Date OFFICE 85808 [place] KAJAL STORY 9 9 [place] T VISIT PROF[facility] MINUTES OFFICE 72624 [facility] ROMERO OUTPATIEN 9 9 [facility] T VISIT E CENTER 15 MINUTES OFFICE 23000 ZOHAIB GRAVES OUTPATIEN 9 9 [facility] MAHIN W T NEW 30 E CENTER MINUTES EMERGENCY 85670 VITALIY 9 9 [facility] DEPARTMEN INC T VISIT LOW/MODER SEVERITY HOSPITAL VITALIY - 9 9 [facility] OUTPATIEN INC T EMERGENCY 58196 TEZ DESHPANDE, 9 9 EMERGENCY JESUS S DEPARTMEN SERVICES T VISIT MODERATE ASSOCIATE SEVERITY S OFFICE 27700 KAJAL CURRY 9 9 [place] T VISIT PROFESSIO [facility] MINUTES HOSPITAL VITALIY - 9 9 [facility] OUTPATIEN INC T HOSPITAL VITALIY - 9 9 [facility] OUTPATIEN INC T EMERGENCY 24209 [place] 9 9 [facility] DEPARTMEN INC T VISIT LOW/MODER SEVERITY EMERGENCY 55519 TEZ LEDESMA, 9 9 EMERGENCY MAHESH P DEPARTMEN SERVICES T VISIT HIGH/URGE ASSOCIATE NT S SEVERITY OFFICE 59806 KAJAL CURRY 9 9 [place] T VISIT PROFESSIO 15 [facility] MINUTES
--- OUTSIDE RECORDS SUMMARY | 2016-12-23 03:25 | External Medical Summary Rpt ---
Demographics Preferred Language Cuban Marital Status Unknown Jehovah'S Witness Affiliation Unknown Race Unknown Ethnic Group Unknown Author Author , Organization [employer] Address Unknown Phone Unavailable Purpose Continuity of Care Document - through 2016 Immunization No patient found.
--- OUTSIDE RECORDS SUMMARY | 2016-12-23 03:25 | External Medical Summary Rpt ---
Author Author , Organization [employer] Address Unknown Phone Unavailable Care Team Providers Care Creel Selector Name Role Phone TEJA PARMAR, Unavailable Unavailable [...] 2016 Problems Code Diagnosis DOS Provider Status 56629 DEGEN 07-03-2009 [place] [place] LUMBAR/LUMB PAIN OSACRAL PROFESSIONA INTER[facility] RAL DISC 26412 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 PROFESSIONA CERVICAL [facility] REGION 7840 HEADACHE 07-03-2009 [facility] [place] [facility] [facility] V5869 LONG-TERM 07-03-2009 [facility] [place] PAIN USE OF PROFESSIONA OTHER [facility] MEDICATIONS 490 BRONCHITIS 06-18-2009 [facility] NOT [facility] SPE[facility]IFIED CENTER ACUTE OR CHRONIC 65983 ASTHMA, 06-18-2009 [facility] , CENTER UNSPECIFIED STATUS 29677 ASTHMA 06-14-2009 [facility] UNSPECIFIED [facility] WITH CENTER EXACERBATIO N 47449 UNSPECIFIED 05-11-2009 [place] [facility] REGION AND THIGH 41393 PAIN IN 05-08-2009 [place] JOINT [place]IN PELVIC PROFESSIONA REGION AND [facility] THIGH 4660 ACUTE 04-29-2009 [facility]IS [facility] 08347 WHEEZING 04-29-2009 [facility] Medications Na ND Rx [...] 34 7- 5- 00 62 ES ve ME 59 20 20 AI ED 31 09 [...] 34 9- 8- 00 58 EY ve ME 59 20 20 AI ED 31 09 09 D MA NI 5 PH CH SO AR AE [...] Procedure DOS Code Location Performer Comment PRESSURIZ 23644 [facility] GARCIA, ED/NONPRE 9 [facility] [place] W SSURIZED E CENTER INHALATIO N TREATMENT NONINVASI 82547 ZOHAIB GARCIA, VE 9 [facility] W EAR/PULSE E CENTER OXIMETRY SINGLE DETER RADEX HIP 59445 [place] Tj PARMAR MEDICAL TEJA UNILATERA IMAGING L ASSOCIATE COMPLETE S MINIMUM 2 VIEWS RADIOLOGI 02288 [place] Belkis PARMAR EXAM 9 MEDICAL TEJA CHEST 2 IMAGING VIEWS ASSOCIATE FRONTAL&L S ATERAL Encounters Encounter Start End Date Code Location Performer Type Date OFFICE 33993 [place] KAJAL STORY 9 9 [place] T VISIT PROFESSIO [facility] MINUTES OFFICE 97889 [facility] ROMERO OUTPATIEN 9 9 [facility] ALLA T VISIT E CENTER 15 MINUTES OFFICE 81010 ZOHAIB GRAVES OUTPATIEN 9 9 [facility] W T NEW 30 E CENTER MINUTES EMERGENCY 71687 VITALIY 9 9 [facility] DEPARTMEN INC T VISIT LOW/MODER SEVERITY HOSPITAL VITALIY - 9 9 [facility] OUTPATIEN INC T EMERGENCY 91020 TEZ DESHPANDE, 9 9 EMERGENCY JESUS S DEPARTMEN SERVICES T VISIT MODERATE ASSOCIATE SEVERITY S OFFICE 42790 KAJAL CURRY 9 9 [place] T VISIT PROFESSIO 15 [facility] MINUTES HOSPITAL VITALIY - 9 9 [facility] OUTPATIEN INC T HOSPITAL VITALIY - 9 9 [facility] OUTPATIEN INC T EMERGENCY 10110 [place] 9 9 [facility] DEPARTMEN INC T VISIT LOW/MODER SEVERITY EMERGENCY 70098 TEZ LEDESMA, 9 9 EMERGENCY MAHESH P DEPARTMEN SERVICES T VISIT HIGH/URGE ASSOCIATE NT S SEVERITY OFFICE 86265 KAJAL CURRY 9 9 [place] T VISIT PROFESSIO 15 [facility] MINUTES
[2016-12-23 03:37] LABS: HEMOGLOBIN 14.9 g/dL (14.1-18.0); LYMPH # 2.4 K/mm3 (0.7-4.5); LYMPH % 39.1 % (10-50)
--- NOTE | 2016-12-23 03:50 | Emergency Room Report ---
History of Present Illness Time Seen by MD Castrejon Presenting Problem in Triage Pt arrived:Ambulance Stretcher Presenting Problem:C/O BACK PAIN, REPORTS NECK SURGERY IN 2003. SMELL OF ETOH, PATIENT CUSSING RELATED TO SOMEONE STEALING PHONE. ACCOMPANIED WITH SARAH THAPA. PATIENT REQUESTING CT AND MRI.STATES INSURANCE WILL NOT PAY FOR SCAN. Onset of symptoms date/time:11/23/16/ or onset unknown for:MEDICAL HX UNKNOWN Treatment Prior to Arrival: DIRECTOR REHABILITATION PROGRAM Provided by: Sepsis Risk Assessment: Temp: 99.3 B/P: 175/77 MAP: Pulse: 100 Resp: 18 Recent fever? N Clinical Suspician of Infection? N Mental Status: 1 - Regular (Normal Baseline) Sepsis Risk:Low Sepsis Risk Have you (or family members/close friends) recently traveled outside the [place]? N If Yes, where/when: Have you had exposure to infectious disease within the past month? N TB? Other? Specify: Source patient, RN notes reviewed, EMS, old records Exam Limitations no limitations Comment pt with lumbar pain which is daily and interferes with adl and inc pain tonight with dec ambulation - no cauda equina sx Cardiac Chest Pain Chest pain indicative of cardiac No Timing/Duration this evening Severity moderate ALLERGIES Coded Allergies: No Known Allergies (12/23/16) Home Medications Reported Medications Metoprolol Succinate 25 MG PO BID #60 Diazepam 5 MG PO DAILY #30 Gabapentin 300 MG PO BID #180 Tramadol Hcl (Tramadol 50MG) 50 MG PO BID #60 Losartan Potassium (Losartan 50MG) 50 MG PO DAILY #30 DULOXETINE HCL (Duloxetine Hydrochloride) 30 MG PO DAILY #30 History Medical History General CAD? No Angina: No CO: No Hypertension? No Hyperlipidemia? No CHF? No DVT? No PE? No COPD? No Asthma? Yes Anemia? No GERD? No Gastric ulcers? No GI Bleed? No Hernia? No Thyroid Problems? No Hypothyroidism? No CVA? No Seizures? No Diabetes? No Renal Insuffiency? No End Stage Renal Disease? No UTI? No Stones? No BPH? No GB Disease: Yes Nephritic Syndrome? No Asplenia? No Hepatitis? No Sickle Cell Disease? No Arthritis? No Migraines? No Cataracts? No Glaucoma? No MRSA? No HIV? No TB? No Anxiety? No Depression? No Cancer? No More? No Immunization Hx DT/Tetanus 3/12/15 Flu UNKNOWN Pneumonia UNKNOWN Surgical Hx Previous Surgery?Y CERVICAL FUSION [place] RECTAL ABCESS Social History Smoking Hx Smoker: Never Smoker Tobacco: Yes Type Snuff Packs/day < 1 Pack Alcohol Alcohol: No Drugs none Review of Systems All Other Systems Reviewed and Negative Constitutional denies fever Eyes denies drainage ENT denies: ear pain, epistaxis, throat pain. Respiratory denies cough, denies shortness of breath, denies wheezing Cardiovascular denies chest pain, denies palpitations, denies syncope Gastrointestinal denies abdominal pain, denies diarrhea, denies vomiting Genitourinary denies: dysuria, frequency, hesitancy, hematuria. Musculoskeletal see HPI, back pain, denies joint pain, denies joint swelling, denies neck pain Skin denies rash Psychiatric/Neurological denies headache, denies seizure Physical Exam Vital Signs Vital Signs Date Time Temp Pulse Resp B/P Pulse O2 O2 Flow FiO2 Ox Delivery Rate 12/23 0437 96 18 143/85 97 12/23 0355 104 18 176/102 97 12/23 0314 99.3 100 18 175/77 97 - WBC >12,000 or <4,000 or 10% bands? 2 or more SIRS Criteria Met? B/P:143/85 MAP: Creatinine >2.0? UA output<0.5ml/kg/hr for 2 hrs? Platelet count >100,000? Lactate >2.0mmol/1? INR >1.2 or PTT > than 60 sec? Evidence of Organ Dysfunction? Provider documented clinical suspician of infection? N Sepsis Criteria Count: 1 Sepsis Risk: Low Sepsis Risk General Appearance no apparent distress Eye Exam - bilateral eye PERRL, bilateral eye EOMI Ear, Nose, Throat normal ENT inspection Neck supple Respiratory Status No: respiratory distress. Cardiovascular regular rate/rhythm Peripheral Pulses Pulses normal Yes Gastrointestinal soft Back no CVA tenderness, no vertebral tenderness, bowel/bladder continent, strt leg raising(R)-ABNL, decreased range of motion Extremities no calf tenderness Strength 4 Upper Ext (L), 4 Upper Ext (R), 4 Lower Ext (L), 4 Lower Ext (R) Neurologic alert, repairer art objects II-XII nml as tested, no motor/sensory deficits Reflexes Reflexes normal No Mental status normal mood/affect Skin no rash cons.w/shingles Medical Decision Making LABS/Meds/Orders Pt receiving controlled substance in ED? No Results/Orders Laboratory Tests 12/23/16 0405: Opiates Screen NEGATIVE, Urine Methadone Screen NEGATIVE, Barbiturates NEGATIVE, Phencyclidine Screen NEGATIVE, Amphetamines Screen NEGATIVE, Benzodiazepines Screen POSITIVE H, Cocaine Screen NEGATIVE, Marijuana (THC) Screen NEGATIVE, Urine Color YELLOW, Urine Appearance CLEAR, Urine pH 5.5, Ur Specific [place] <= 1.005, Urine Protein NEGATIVE, Urine Ketones NEGATIVE, Urine Blood NEGATIVE, Urine Nitrate NEGATIVE, Urine Bilirubin NEGATIVE, Urine Urobilinogen 0.2, Ur Leukocyte Esterase NEGATIVE, Urine WBC OCC, Urine Bacteria 1+, Hyaline Casts OCC , Fine Granular Casts OCC, Urine Mucus 1+, Urine Glucose NEGATIVE 12/23/16 0317: Sodium 143, Potassium 3.6, Chloride 108 H, Carbon Dioxide 24, BUN 3 L, Creatinine 1.0, Estimated Creat Clear 121, Estimated GFR (MDRD) 83, Glucose 138 H, Calcium 8.0 L, Total Bilirubin 0.4, AST 41 H, ALT 46, Alkaline Phosphatase 80, Total Protein 7.7, Albumin 3.5, Globulin 4.2 H, Albumin/Globulin Ratio 0.8 L, WBC 6.1, RBC 4.93, Hgb 14.9, Hct 44.6, MCV 90.5, RDW 13.3, Plt Count 264, MPV 6.6 L, Gran % 51.9, Gran # 3.1, Lymphocytes % 39.1, Monocytes % 7.1, Eosinophils % 1.1, Basophils % 0.7, Lymphocytes # 2.4, Monocytes # 0.4, Eosinophils # 0.1, Basophils # 0.0, PUBS MCHC 33.5, MCH 30.3, Alcohols 243 H Current Medication Orders Sig/Lester Start time Last Medication Dose Route Stop Time Status Admin Sodium Chloride 10 ML PRN PRN 12/23 033 AC IV 12/25 323 Orders Procedure Date/time Status DIET-NOTHING BY MOUTH 12/[address] SCAN REQ 12/238 Complete IV SALINE LOCK 12/24 323 Active URINALYSIS/COMPLETE 12/24 323 Complete DRUG ABUSE SCREEN (TRIAGE) 12/24 323 Complete CBC WITH AUTO DIFF 12/24 323 Complete CHEM 12 PROFILE 05/03 0324 Complete ALCOHOL 05/03 0324 Complete XRAY/CT/US XRAY/CT/US CT L-spine CT interpretation by discussed w/radiologist Time results known: 699 CT Results no fracture seen, abnormal (see report) Departure Departure Time of Disposition 07 Disposition DC Home or Self Care(routine) Clinical Impression Primary Impression: Lumbar degenerative disc disease Secondary Impressions: Alcohol intoxication Qualifiers: Complication of substance-induced condition: uncomplicated Qualified Code: F10.120 - Alcohol abuse with intoxication, uncomplicated Lumbar facet joint pain Lumbar foraminal stenosis Condition STABLE Patient Instructions DI for Low Back Pain Additional Instructions use meds and call pcp this am Discharge Counseling Counseled pt/family regarding diagnosis, test results, medications/RX, follow up needs ED Critical Care Critical Care No at 0704
[2016-12-23 04:18] LABS: URINE BILIRUBIN - DIPSTICK NEGATIVE (NEG); URINE BLOOD NEGATIVE (NEG)
[2016-12-23 04:26] LABS: AMPHETAMINES/METAMPHETAMINES NEGATIVE ng/mL (<1000)
--- NOTE | 2016-12-23 06:35 | RADIOLOGY REPORT PS360 ---
CT LUMBAR SPINE W/O CONTRAST CLINICAL INDICATION: Low back pain BACK PAIN ORDERING PHYSICIAN: Trinidad Sullivan MD PATIENT AGE: 41 years COMPARISON: 04/08/2013 TECHNIQUE:Axial, sagittal, and coronal images are generated and reviewed without contrast COMPARISON: None FINDINGS : There is normal alignment. No fracture or dislocation is evident. There is minimal bulging disc at L4-L5 and L5-S1. The bulging disc at L5-S1 somewhat eccentric toward the right with mild right lateral recess narrowing. Consider MRI for more thorough evaluation to determine the degree of neural impingement. No lytic or blastic change. There is mild facet arthrosis at L4-L5. Small incomplete defects are present at the pars of L5 bilaterally as previously described. Mild bilateral foraminal narrowing at L4-L5 and L5-S1. IMPRESSION: 1. Mild bulging disc at L4-L5 and L5-S1. The bulging disc at L5-S1 slightly eccentric to the right. MRI may be of further value if clinically warranted to determine if there is any neural impingement. 2. Mild facet arthritic changes at L4-L5. 3. Mild bilateral foraminal narrowing at L4-5 and L5-S1
[2016-12-23 07:06] VITALS: BP 125/76
== END 2016-12-23 07:13 | disposition home or self-care (01) ==
LOC: ER 03:13
PROVIDERS: Emergency Medicine
DX: M51.36 Other intervertebral disc degeneration, lumbar region (principal); F10.120 Alcohol abuse with intoxication, uncomplicated
CPT/HCPCS: G6040